=== PATIENT | male | born 1995 | race African-American/Black ===

== ENCOUNTER 2017-05-22 18:09 | Emergency (ER) | payer OTHER ==
[2017-05-22 20:10] LABS: HEMATOCRIT 47.6 % (42.0-52.0); HEMOGLOBIN 15.4 g/dl (13.5-17.5); MEAN CORPUSCULAR HEMOGLOBIN 27.5 pg (27.0-33.0); MEAN CORPUSCULAR HGB CONC 32.4 g/dl (32.0-36.5); MEAN CORPUSCULAR VOLUME 84.8 fl (80.0-96.0); PLATELET COUNT, AUTOMATED 261 10^3/uL (150-450); RED BLOOD COUNT 5.61 10^6/uL (4.30-6.10); RED CELL DISTRIBUTION WIDTH 12.4 % (11.5-14.5); WHITE BLOOD COUNT 5.5 10^3/uL (4.0-10.0)
[2017-05-22 20:23] LABS: AMPHETAMINES LEVEL URINE NEGATIVE (NEGATIVE); BARBITURATES URINE NEGATIVE (NEGATIVE); BENZODIAZEPINES URINE NEGATIVE (NEGATIVE); CANNABINOIDS URINE NEGATIVE (NEGATIVE); COCAINE METABOLITE URINE NEGATIVE (NEGATIVE); METHADONE URINE NEGATIVE (NEGATIVE); OPIATES URINE NEGATIVE (NEGATIVE); PHENCYCLIDINE URINE NEGATIVE (NEGATIVE)
[2017-05-22 20:36] LABS: ALBUMIN 4.2 GM/DL (3.2-5.2); ALBUMIN/GLOBULIN RATIO 1.11 (1.00-1.93); ALKALINE PHOSPHATASE 101 U/L (45-117); ALT/SGPT 118 U/L (12-78); ANION GAP 6 MEQ/L (8-16); AST/SGOT 32 U/L (7-37); BILIRUBIN,DIRECT < 0.1 MG/DL (0.0-0.2); BILIRUBIN,TOTAL 0.3 MG/DL (0.2-1.0); BLOOD UREA NITROGEN 12 MG/DL (7-18); CALCIUM LEVEL 9.2 MG/DL (8.5-10.1); CARBON DIOXIDE LEVEL 30 MEQ/L (21-32); CHLORIDE LEVEL 107 MEQ/L (98-107); CREATININE FOR GFR 0.91 MG/DL (0.70-1.30); ETHYL ALCOHOL (ETHANOL) < 0.003 % (0.000-0.010); GLOMERULAR FILTRATION RATE > 60.0 (>60); GLUCOSE, FASTING 83 MG/DL (70-100); POTASSIUM SERUM 3.8 MEQ/L (3.5-5.1); SALICYLATE LEVEL < 1.7 MG/DL (5.0-30.0); SODIUM LEVEL 143 MEQ/L (136-145); THYROID STIMULATING HORMONE 0.902 uIU/ML (0.358-3.740)
[2017-05-22 20:37] LABS: ACETAMINOPHEN LEVEL < 2.0 UG/ML (10.0-30.0)
== END 2017-05-22 22:39 | disposition home or self-care (01) ==
LOC: M ED 18:09
DX: F33.9 Major depressive disorder, recurrent, unspecified (principal); Z77.098 Contact with and (suspected) exposure to other hazardous, chiefly nonmedicinal, chemicals
CPT/HCPCS: G0480

== ENCOUNTER 2018-12-18 12:27 | Emergency (ER) | payer OTHER ==
[~2018-12-18] VITALS: Ht 172.7 cm; Wt 106.0 kg
[2018-12-18 12:27] VITALS: BP 142/81
[2018-12-18] MEDS ORDERED: METH4PACK PO (12:34)
--- NOTE | 2018-12-18 13:13 | REP ---
PA and lateral chest: There are no comparisons. The lung cade are clear. The cardiac size is normal. The nicole, mediastinum, and skeletal structures are unremarkable. Impression: Negative PA and lateral chest. Electronically Signed by Colton Brown MD 12/18/2018 01:04 P
[2018-12-18] MEDS ORDERED: TUSS1CAP5 PO (13:24)
[2018-12-18] MEDS ORDERED: PROV108A INH (13:25)
== END 2018-12-18 13:44 | disposition home or self-care (01) ==
LOC: M ED 12:27
DX: J40 Bronchitis, not specified as acute or chronic (principal); F17.200 Nicotine dependence, unspecified, uncomplicated; Z79.899 Other long term (current) drug therapy

== ENCOUNTER 2019-04-09 09:27 | Emergency (ER) | payer OTHER ==
[~2019-04-09] VITALS: Ht 172.7 cm; Wt 106.2 kg
[~2019-04-09 09:27] MED LIST: METH4PACK PO; PROV108A INH; TUSS1CAP5 PO
[2019-04-09] MEDS ORDERED: ACETAMINOPHEN 325 MG TAB PO ONE (09:45)
[2019-04-09] MEDS ORDERED: IBUPROFEN 800 MG TAB PO ONE (10:30)
[2019-04-09 10:43] LABS: INFLUENZA A AMPLIFICATION POSITIVE (NEGATIVE); INFLUENZA B AMPLIFICATION NEGATIVE (NEGATIVE)
[2019-04-09 11:38] VITALS: BP 137/58
--- NOTE | 2019-04-09 11:39 | REP ---
CHEST: Two views. There is no evidence of acute infiltrate. No pleural effusion is seen. The heart is normal in size. The mediastinal silhouette is unremarkable. The visualized osseous structures are intact. IMPRESSION: No acute pulmonary disease. Electronically Signed by Colton Vasquez MD 04/09/2019 06:43 P
== END 2019-04-09 11:41 | disposition home or self-care (01) ==
LOC: M ED 09:27
DX: J09.X2 Influenza due to identified novel influenza A virus with other respiratory manifestations (principal); Z20.9 Contact with and (suspected) exposure to unspecified communicable disease